=== PATIENT | male | born 1945 | race Caucasian/White ===

== ENCOUNTER → 2016-12-26 | Day surgery (SDC) | payer BC ==
[~2016-12-26] VITALS: Ht 188 cm; Wt 102.0 kg
[~2016-12-26] MED LIST: AMOX500T3 PO; ASPCH81X PO; ATOR-22 PO; AZEL0.15 NAE; AZEL30SP NAE; CLOT1PAK; DABI150C PO; GLUC1CAP10; IBUP-1450 PO; LIDOCAINE HCL 2% 2 ML VIAL (20MG/ML) ONE; LPR25 PO; METO25TA3 PO; MOME50SP5; OMEG10007 PO; PROPOFOL IV EMULSION 10 MG/ML 20 ML VIAL IV ONE; VNTHFA/IN INH
[2016-12-26 06:54] VITALS: Ht 188 cm; Wt 102.0 kg
--- NOTE | 2016-12-26 09:00 | Cardiology Progress Note ---
Cardiology Progress Note Date of Service Dec 26, 2016. Cardiology Progress Note Patient arrived for elective cardioversion. He was connected to the equipment monitor phototypesetting and was in Sinus rhythm. This was confirmed with a 12 lead EKG. Pt feeling well. I counselled him to continue his current metoprolol dose and current Pradaxa dose. Outpt cardiology follow up was arranged. 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 Whitney Pinzon DO
== END | disposition home or self-care (01) ==
LOC: C.CATH 06:35
PROVIDERS: ATTEND Physician Assistant
DX: I48.91 Unspecified atrial fibrillation (principal)

== ENCOUNTER → 2017-08-14 | Day surgery (SDC) | payer BC ==
[~2017-08-14] VITALS: Ht 188 cm; Wt 104.0 kg
[2017-08-14] VITALS (9 sets, daily range): BP systolic 118–149; BP diastolic 73–91; PULSE 51–86; TEMP 36.7; O2SAT 94–98; Ht 188 cm; Wt 104.0 kg
[~2017-08-14] MED LIST changes: -AZEL30SP NAE; +CHLOTAB10 PO; -CLOT1PAK; -LPR25 PO; +MISCTAB29 PO; -OMEG10007 PO
--- NOTE | 2017-08-14 07:40 | History & Physical Bridge Note ---
H&P Re-Evaluation Bridge Note: I have examined the patient, reviewed the History & Physical and in the interval since the performance of the History & Physical I have noted the following changes of clinical significance: No changes noted
--- NOTE | 2017-08-14 07:48 | CARDIOVERSION ---
DATE OF OPERATION: 08/14/2017 PROCEDURE: Cardioversion. HISTORY OF PRESENT ILLNESS: The patient is a 72-year-old male who has persistent atrial fibrillation. He has had multiple cardioversions in the past and recently developed a cold which resulted in reoccurrence of the atrial fibrillation. He has been on Pradaxa and beta helene. He is now presenting for a cardioversion. DESCRIPTION OF PROCEDURE: Sedation was given by anesthesia. After informed consent was obtained, the patient received 200 joules of biphasic energy converting him to a normal sinus rhythm. The procedure was not complicated. After the patient is fully wake and recovered, he will be discharged home to outpatient followup. I attest to the content of the Intraoperative Record and any orders documented therein. Any exception s are noted below.
--- NOTE | 2017-08-14 08:23 | Discharge Instructions ---
Discharge Instructions Date of Service Aug 14, 2017. Admission Reason for Admission: Atrial Fib/Dr Mcqueen Anesthesia Notified Discharge Discharge Diagnosis / Problem: paf Discharge Goals Goal(s): Improve function Activity Recommendations Activity Limitations: resume your previous activity . Instructions / Follow-Up Instructions / Follow-Up with Monique Gabriel Current Hospital Diet Patient's current hospital diet: Discharge Diet Recommended Diet: AHA Diet (Heart Healthy) Pending Studies Studies pending at discharge: no Medical Emergencies . Who to Call and When: Medical Emergencies: If at any time you feel your situation is an emergency, please call 911 immediately. . Non-Emergent Contact Non-Emergency issues call your: Setter Cold Rolling Machine . . "Provider Documentation" section prepared by Fausto Mcqueen. . VTE Core Measure Inpt VTE Proph given/why not?: Other Anticoagulation
--- NOTE | 2017-08-14 08:43 | Anesthesiology Progress Note ---
Anesthesia Post Op Note Date & Time Aug 14, 2017 at 08:43 Vital Signs Pain Intensity: 0 Vital Signs Past 12 Hours Date Time Temp Pulse Resp B/P (MAP) Pulse Ox O2 Delivery O2 Flow Rate FiO2 08/14/17 08:20 53 16 122/82 (95) 97 Room Air 08/14/17 08:05 55 16 116/74 (88) 97 Room Air 08/14/17 08:00 55 16 119/73 (88) 97 Room Air 08/14/17 07:55 54 16 118/76 (90) 97 Room Air 08/14/17 07:50 55 16 136/78 (97) 97 Room Air 08/14/17 07:45 54 16 129/82 (98) 97 Room Air 08/14/17 07:43 51 16 118/73 94 Room Air 08/14/17 07:41 51 16 118/73 94 Room Air 08/14/17 07:40 52 16 127/76 94 Room Air 08/14/17 07:36 52 16 127/76 94 Room Air 08/14/17 07:34 82 16 121/91 94 Room Air 08/14/17 07:32 81 16 137/85 98 Room Air 08/14/17 07:30 75 16 149/90 98 Room Air 08/14/17 06:53 36.7 86 16 132/89 97 Room Air Notes Mental Status: alert / awake / arousable, participated in evaluation Pt Amnestic to Procedure: Yes Nausea / Vomiting: adequately controlled Pain: adequately controlled Airway Patency, RR, SpO2: stable & adequate BP & HR: stable & adequate Hydration State: stable & adequate Anesthetic Complications: no major complications apparent
== END | disposition home or self-care (01) ==
LOC: C.CATH 06:32
PROVIDERS: ATTEND Internal Medicine Interventional Cardiology
DX: I48.0 Paroxysmal atrial fibrillation (principal); M17.10 Unilateral primary osteoarthritis, unspecified knee; I34.0 Nonrheumatic mitral (valve) insufficiency; E78.5 Hyperlipidemia, unspecified; I10 Essential (primary) hypertension; F17.290 Nicotine dependence, other tobacco product, uncomplicated; Z79.82 Long term (current) use of aspirin; Z79.899 Other long term (current) drug therapy; Z85.46 Personal history of malignant neoplasm of prostate

== ENCOUNTER 2022-04-09 07:57 | Inpatient (IN) ==
[2022-04-09] MEDS ORDERED: POLYETHYLENE (MIRALAX) 17 GM PACK PO PRN (08:22)
[2022-04-09] MEDS ORDERED: ONDANSETRON INJ 2 MG/ML 2 ML VIAL IV PRN (08:22)
[2022-04-09] MEDS ORDERED: ACETAMINOPHEN 325 MG TAB PO PRN (08:22)
[2022-04-09] MEDS ORDERED: ALUMINUM/MAGNESIUM SUSP 30 ML UDC PO PRN (08:22)
[2022-04-09] MEDS ORDERED: MAGNESIUM HYDROXIDE SUSP 30 ML UDC PO PRN (08:22)
--- NOTE | 2022-04-09 09:48 | History & Physical Report ---
Date of Service April 09, 2022 Assessment & Plan (1) PAF (paroxysmal atrial fibrillation): (2) HTN (hypertension): (3) HLD (hyperlipidemia): (4) Mitral valve regurgitation: (5) Pre-diabetes: Plan: Assessment and plan This is a 76-year-old male who has a significant past medical history of paroxysmal atrial fibrillation anticoagulated on Eliquis with history of cardioversion in past, HTN, HLD, prediabetes, alcohol dependence, history of prostate cancer, mitral valve regurg who presents as a direct admission at the referral of cardiology for initiation of amiodarone load and possible cardioversion. Rate controlled atrial fibrillation Mitral regurgitation Patient directly admitted to PCU Cardiology consulted -will defer to our cardiology colleagues regarding amiodarone dosing Per initial conversation with leadership coach likely plan is for amiodarone load and possible cardioversion on Friday CBC, CMP, troponin, mag, TSH ordered COVID ordered EKG reviewed -rate controlled atrial fibrillation Continue Eliquis, he did not miss any doses over the last 30 days Continue metoprolol for now -defer to cardiology for dose reduction Echo 02/2022 per epic: LVEF preserved at 56% and moderate concentric LVH- unchanged from 2016, severe left atrium enlargement, previously was moderate in 2016, Mild MR and TR, stable HTN Continue metoprolol HLD Continue statin Alcohol dependence Drinks daily for happy hour from 3 to 5 PM No history of withdrawal, monitor Recommend cessation Pre Diabetes on metformin, hold while inpt last a1c 5.7 03/26/21 a1c in a.m. await lab results, hold on starting sliding scale for now History of prostate cancer DVT prophylaxis: Eliquis Dispo: PCU, likely to remain admitted for amio loading and possible cardioversion on Friday Full code PCP: Bjorn Pt was seen and examined in collaboration with Dr. Ontiveros, please see addendum Admission and Anticipated Discharge Date Admission Date: April 09, 2022 History of Present Illness Chief Complaint: Direct admission secondary to symptomatic A. fib and amiodarone load initiation. Primary Care Provider: Antonio Milan MD This is a 76-year-old male who has a significant past medical history of paroxysmal atrial fibrillation anticoagulated on Eliquis with history of cardio version in past, HTN, HLD, prediabetes, alcohol dependence, history of prostate cancer, mitral valve regurg who presents as a direct admission at the referral of cardiology for initiation of amiodarone load and possible cardioversion. Currently he feels well. He does not feel any palpitations while in atrial fibrillation. He does get dyspnea on exertion. He denies any recent illness, fever, chills, sweats, lightheadedness, dizziness, syncope, chest pain, shortness of breath at rest, cough, hemoptysis, URI symptoms, nausea, vomiting, abdominal pain, change in bowel or urinary habits. He took all his morning medications including Eliquis and metoprolol. Patient's most recent echocardiogram done as outpatient revealed preserved EF at 56%, moderate concentric LVH which was unchanged from 2016. He does have severe left atrium enlargement which previously was moderate in 2016, mild MR and TR stable. Recently he had increased his metoprolol succinate to 50 mg twice daily; however, symptoms remain the same. He has not missed any doses of his Eliquis. He states approximately a month and a half ago he was off of it for 3 days for a colonoscopy. He is a very active individual and goes to the gym frequently throughout the week. He also enjoys hiking. He is an occasional cigar smoker. He does drink alcohol daily. He has a daily happy hour from 3 PM to 5 PM. He states he drinks 1 drink a day. Allergies Allergy/AdvReac Type Severity Reaction Status Date / Time No Known Allergies Allergy Verified 04/09/22 08:35 Home Medications Medication Instructions Recorded Confirmed Type amoxicillin 500 mg capsule 2,000 mg PO UD 04/09/22 04/09/22 History apixaban 5 mg tablet (Eliquis) 5 mg PO BID 04/09/22 04/09/22 History atorvastatin 20 mg tablet 20 mg PO DAILY 04/09/22 04/09/22 History cyanocobalamin (vitamin B-12) 100 100 mcg PO DAILY 04/09/22 04/09/22 History mcg tablet (Vitamin B-12) metformin 500 mg tablet,extended 500 mg PO BIDM 04/09/22 04/09/22 History release 24 hr metoprolol succinate 25 mg 50 mg PO BID 04/09/22 04/09/22 History tablet,extended release 24 hr thiamine HCl (vitamin B1) 100 mg 100 mg PO DAILY 04/09/22 04/09/22 History tablet Past Med/Surg History Medical History (Updated 04/09/22 @ 08:43 by Megan Aguillon PA-C) History of umbilical hernia HLD (hyperlipidemia) HTN (hypertension) Mitral valve regurgitation PAF (paroxysmal atrial fibrillation) Pre-diabetes Prostate cancer (03/27/11) Surgical History (Updated 04/09/22 @ 08:43 by Megan Aguillon PA-C) History of arthroscopic knee surgery History of cataract extraction with lens replacement b/l 06/2020 History of colonoscopy with polypectomy History of cystoscopy History of hernia repair History of lumbar surgery hx of b/l L4-5 hemilaminectomy, foraminotomy and right microdiscectomy History of total knee arthroplasty Right Family History (Updated 04/09/22 @ 10:32 by Megan Aguillon PA-C) Mother Alzheimer disease Father , 98 Old age Social History (Updated 04/09/22 @ 10:33 by Megan Aguillon PA-C) Smoking Status: Current some day smoker Tobacco Type: Cigars Second Hand Exposure: No; Do You Dip or Chew Tobacco: No; Tobacco Cessation Education Requested by Patient: No Hx Alcohol Use: Yes Alcohol type: hard liquor Alcohol Intake Frequency: 4 or More x per/Week Alcohol Intake Frequency Comment: daily happy hour from 3p-5p Hx Substance Use: No Preferred Language: Qatari Communication Ability: Effective Behavioral Health Specialist Required: No Beliefs That Will Affect Care: None marital status: Current Living Situation: Spouse current occupational status: retired 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 Other Information That Helps Us Care for You: No Feels Safe at Home: Yes Safety Concerns: Feels Safe At This Time Assistive Devices: None Review of Systems Review of Systems: All systems reviewed & are unremarkable except as noted in HPI & below Physical Exam Physical Exam: Constitutional: WD/WN, NAD, sitting up in bedside chair, pleasant, conversing easily Head: Normocephalic, Atraumatic Eyes: ,pupils equal, conjunctivae normal, anicteric sclerae ENMT: external ear and nose normal, oropharynx normal Neck: trachea midline, no thyromegaly normal visual inspection Respiratory: normal respiratory effort, lungs clear to auscultation, no wheeze, rales, rhonchi. Normal insp/exp effort, no accessory muscle use Cardiovascular: IRR/IRR, no murmur, no edema Vessels: no JVD or carotid bruit Chest: normal inspection of chest Abdomen: soft,NT, BS, Musculoskeletal: no cyanosis or clubbing, AROM x 4 Skin: no rashes, warm and dry normal turgor Neurologic: no face palsy, no dysarthria CN's II-XI intact bilaterally and moves all extremities Psychiatric: A+Ox3, euthymic affect : deferred Results & Data Results & Data ([facility]) Vital Signs (Past 12 Hours) awaiting vital signs Laboratory Results Labs ordered Medications Administered Current Inpatient Medications Acetaminophen (Acetaminophen 325 Mg Tab) 650 mg PO Q4H PRN PRN Reason: Pain or Fever Stop: 05/09/22 08:21 Al Hydrox/Mg Hydrox/Simethicone (Aluminum/Magnesium Susp 30 Ml Udc) 15 ml PO Q4H PRN PRN Reason: Dyspepsia Stop: 05/09/22 08:21 Apixaban (Apixaban 5 Mg Tablet) 5 mg PO BID [facility] Stop: 05/09/22 20:59 Atorvastatin Calcium (Atorvastatin 20 Mg Tab) 20 mg PO DAILY [facility] Stop: 05/10/22 08:59 Cyanocobalamin (Cyanocobalamin (B-12) 100 Mcg Tablet) 100 mcg PO DAILY [facility] Stop: 05/10/22 08:59 Magnesium Hydroxide (Magnesium Hydroxide Susp 30 Ml Udc) 30 ml PO Q12H PRN PRN Reason: Constipation Stop: 05/09/22 08:21 Metoprolol Succinate (Metoprolol Succ 50mg Ext Rel Tab) 50 mg PO BID [facility] Stop: 05/09/22 20:59 Ondansetron HCl (Ondansetron Inj 2 Mg/Ml 2 Ml Vial) 4 mg IV Q6H PRN PRN Reason: Nausea Stop: 05/09/22 08:21 Polyethylene Glycol (Polyethylene (Miralax) 17 Gm Pack) 17 gm PO DAILY PRN PRN Reason: Constipation Stop: 05/09/22 08:21 Thiamine HCl (Thiamine Hcl 100 Mg Tab) 100 mg PO DAILY FADY Stop: 05/10/22 08:59 ECG Rate (beats per minute): 80 Rhythm: atrial fibrillation Findings: + PVC Code Status & VTE Plan Code Status FULL CODE VTE Prophylaxis Plan VTE Prophylaxis will be ordered: Yes Supervising Physician Co-Signing Physician Notes Pt is a 76 y/o M with hx of Afib on eliquis, HLD, prediabetes, HTN, Prostate Ca s/p radical prostatectomy, mild mitral regurgitation and severe biatrial enlargement admitted for cardioversion due to symptomatic afib. Recent Echo 02/28/22: Normal chamber size with moderate concentric LVH. Normal LV systolic function without regional wall motion. Calculated LV ejection Fraction = 56% (bi-plane method of discs). Mild aortic valve sclerosis without stenosis. Mild mitral regurgitation. Mild tricuspid regurgitation. Severe biatrial enlargement. PE: NAD, well developed Cardiac: in afib, no murmur Lungs: CTA, no wheezing or crackles ABd: ND, NT, soft MSK: no LE edema Psych:AAOx3, normal affect A/P: Afib: -pt is symptomatic with exertion -currently HR wnl and asymptomatic at rest -cardiology on board: current plan is to start pt on amiodarone and cardioversion in 3 days ---- change metoprolol to 25mg BID -will continue home eliquis Other chronic conditions: plan as above Agree with A/P by Megan Aguillon PA-C
--- NOTE | 2022-04-09 10:07 | Cardiology Consultation ---
Date of Consultation April 09, 2022 Assessment & Plan (1) PAF (paroxysmal atrial fibrillation): Symptomatic atrial fibrillation. Planned direct admit for amiodarone load and DCCV. EKG showing atrial fib with rates in the 80s and occasional PVCs. QTC 419 ms. 1. Reduce metoprolol to 25 mg BID 2. Start amiodarone 400 mg three times daily with meals, possible DCCV on Friday. 3. Labs pending- follow renal function and electrolytes. Potassium goal of 4.0 and mag goal of 2.0 4. Okay to eat today. Will plan on NPO night in prep for DCCV on Friday. Case discussed with Dr. Palomo- will follow. Supervising Physician Co-Signing Physician Notes Patient seen examined the bedside. Reports dyspnea when climbing stairs. Symptoms present for several months. No orthopnea, PND, or lower extremity edema. Denies chest discomfort or heaviness. Denies lightheadedness, dizziness, syncope, or near syncope. PE: VSS. Gen: NAD, AAO x3. Heart: Irregular rhythm, normal S1S2. No murmur. Pulm: clear B/L, no rales, rhonchi, or wheeze. Ext: No edema. A/P: Agree with above AP history, physical exam, assessment and plan. Patient agreeable to amiodarone loading. Continue Eliquis uninterrupted. Plan for external direct-current cardioversion Friday a.m. History of Present Illness Reason for Consultation: Direct admit for amiodarone load and DCCV, Persistent atrial fib Requesting Physician: Verena River Attending Physician: Reji Ontiveros MD History of Present Illness 76 year old male direct admit for inpatient amiodarone load with possible DCCV. Follows with Dr. Mcqueen and the undersigned as an outpatient. As an outpatient, he was having concerns regarding symptomatic atrial fib. Noted dyspnea on exertion, specifically steps or hiking. When he exercises at the gym he feels well. Denies exertional chest pain. No palpitations, dizziness, or syncope. Echo done as an outpatient- LVEF preserved at 56% and moderate concentric LVH- unchanged from 2016 He has severe left atrium enlargement, previously was moderate in 2016 Mild MR and TR, stable. Attempted rate control with titration of metoprolol succinate 50 mg BID, symptoms remained. He is anticoagulated on Eliquis without any missed doses. Upon entrance into the room patient was resting comfortably in bed. Denied any current chest pain or shortness of breath- was at the gym prior to admission without concerning symptoms per the patient. No palpitations, dizziness, or syncope. No orthopnea, PND, or increased lower extremity edema. Past medical history: 1. Paroxysmal atrial fibrillation, [id number] score of 2 (age 2), on Eliquis a. S/p [facility] 2010, 2015, 2016 2. Severely enlarged left and right atrium per echocardiogram, 02/2022 3. Dyslipidemia 4. Diabetes type 2 Allergies Allergy/AdvReac Type Severity Reaction Status Date / Time No Known Allergies Allergy Verified 04/09/22 08:35 Home Medications Medication Instructions Recorded Confirmed Type amoxicillin 500 mg capsule 2,000 mg PO UD 04/09/22 04/09/22 History apixaban 5 mg tablet (Eliquis) 5 mg PO BID 04/09/22 04/09/22 History atorvastatin 20 mg tablet 20 mg PO DAILY 04/09/22 04/09/22 History cyanocobalamin (vitamin B-12) 100 100 mcg PO DAILY 04/09/22 04/09/22 History mcg tablet (Vitamin B-12) metformin 500 mg tablet,extended 500 mg PO BIDM 04/09/22 04/09/22 History release 24 hr metoprolol succinate 25 mg 50 mg PO BID 04/09/22 04/09/22 History tablet,extended release 24 hr thiamine HCl (vitamin B1) 100 mg 100 mg PO DAILY 04/09/22 04/09/22 History tablet Patient History Medical History HLD (hyperlipidemia) HTN (hypertension) Mitral valve regurgitation PAF (paroxysmal atrial fibrillation) Pre-diabetes Prostate cancer (03/27/11) Surgical History History of arthroscopic knee surgery History of cataract extraction with lens replacement b/l 06/2020 History of colonoscopy with polypectomy History of cystoscopy History of hernia repair History of lumbar surgery hx of b/l L4-5 hemilaminectomy, foraminotomy and right microdiscectomy History of total knee arthroplasty Right History of umbilical hernia Family History Mother Alzheimer disease Father , 98 Old age Social History Smoking Status: Current some day smoker Tobacco Type: Cigars Second Hand Exposure: No; Do You Dip or Chew Tobacco: No; Tobacco Cessation Education Requested by Patient: No Hx Alcohol Use: Yes Alcohol type: hard liquor Alcohol Intake Frequency: 4 or More x per/Week Alcohol Intake Frequency Comment: daily happy hour from 3p-5p Hx Substance Use: No Preferred Language: Kittitian Communication Ability: Effective Wire Coating Machine Operator Required: No Beliefs That Will Affect Care: None marital status: Current Living Situation: Spouse current occupational status: retired 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 Other Information That Helps Us Care for You: No Feels Safe at Home: Yes Safety Concerns: Feels Safe At This Time Assistive Devices: None Review of Systems Review of Systems: All systems reviewed & are unremarkable except as noted in HPI & below Physical Exam Constitutional: healthy appearing; no acute distress Eyes: PERRL, conjunctivae normal, anicteric sclerae Neck: normal visual inspection and trachea midline Respiratory: normal respiratory effort, lungs clear to auscultation Cardiovascular: Rate/Rhythm: regular rate and + irregularly irregular Heart Sounds: normal S1 and normal S2; no murmur Vessels: no JVD Extremities: no edema Gastrointestinal (Abdomen): normal bowel sounds, soft, nontender, no hepatosplenomegaly Musculoskeletal: no cyanosis or clubbing, extremities motor strength 5/5 Skin: no rashes, warm and dry Neurologic: Motor/Sensory: no tremor Psychiatric: A+Ox3, euthymic affect Results & Data ([facility]) Vital Signs (Past 12 Hours) Vital Signs Temp Pulse Resp BP Pulse Ox 37 C 82 16 128/77 99 04/09/22 09:59 04/09/22 09:59 04/09/22 09:59 04/09/22 09:59 04/09/22 09:59 Laboratory Results Cardiac Enzymes 04/09/22 Range/Units 10:17 AST 31 (13-39) U/L Troponin I High Sens 8.0 (0-20) pg/ml CBC 04/09/22 Range/Units 10:17 WBC 6.42 (4.8-10.8) K/uL RBC 4.38 L (4.7-6.1) M/uL Hgb 14.5 (14.0-18.0) g/dL Hct 43.1 (42-52) % Plt Count 153 (130-400) K/uL Neut # (Auto) 3.75 (1.4-6.5) K/uL Lymph # (Auto) 1.62 (1.2-3.4) K/uL [place] # (Auto) 0.81 H (0.11-0.59) K/uL Eos # (Auto) 0.16 (0-0.5) K/uL Baso # (Auto) 0.03 (0-0.2) K/uL Comprehensive Metabolic Panel 04/09/22 Range/Units 10:17 Sodium 141 (136-145) mmol/L Potassium 4.7 (3.5-5.1) mmol/L Chloride 106 (98-107) mmol/L Carbon Dioxide 27 (21-32) mmol/L BUN 23 (6-23) mg/dl Creatinine 1.04 (0.6-1.4) mg/dl Glucose 108 H (70-99(Fasting)) mg/dl Calcium 9.5 (8.5-10.1) mg/dl AST 31 (13-39) U/L ALT 50 (7-52) U/L Alkaline Phosphatase 55 (34-104) U/L Total Protein 7.0 (6.0-8.3) gm/dl Albumin 4.5 (3.4-5.0) gm/dl Intake and Output 04/08/22 04/09/22 04/09/22 22:59 06:59 14:59 Other: Weight 104.326 kg Weight Measurement Method Stated by Patient Patient Weight 04/10/22 06:59 Weight 104.326 kg Diagnostic Findings Echo 02/28/2022 outpatient The primary indication after review was deemed appropriate and the examination was performed. Normal chamber size with moderate concentric LVH. Normal LV systolic function without regional wall motion. Calculated LV ejection Fraction = 56% (bi-plane method of discs). Mild aortic valve sclerosis without stenosis. Mild mitral regurgitation. Mild tricuspid regurgitation. Severe biatrial enlargement.
[2022-04-09 10:47] LABS: Basophils # (auto) 0.03 K/uL (0-0.2); Basophils % (auto) 0.5 %; Eosinophils # (auto) 0.16 K/uL (0-0.5); Eosinophils % (auto) 2.5 %; Hematocrit (blood only) 43.1 % (42-52); Hemoglobin 14.5 g/dL (14.0-18.0); Immature Granulocytes # (auto) 0.05 K/uL (0.00-0.02); Immature Granulocytes % (auto) 0.8 %; Lymphocytes # (auto) 1.62 K/uL (1.2-3.4); Lymphocytes % (auto) 25.2 %; Mean Corpuscular Hemoglobin 33.1 pg (25-34); Mean Corpuscular Volume 98.4 fL (80-100); Mean Platelet Volume 11.3 fL (7.4-10.4); Monocytes # (auto) 0.81 K/uL (0.11-0.59); Monocytes % (auto) 12.6 %; Neutrophils # (auto) 3.75 K/uL (1.4-6.5); Neutrophils % (auto) 58.4 %; Platelet Count 153 K/uL (130-400); RDW Coefficient of Variation 14.3 % (11.5-14.5); RDW Standard Deviation 50.4 fL (36.4-46.3); Red Blood Count 4.38 M/uL (4.7-6.1); White Blood Count 6.42 K/uL (4.8-10.8)
[2022-04-09 10:56] LABS: Mean Corpuscular Hgb Conc 33.6 g/dL (32-36)
[2022-04-09] MEDS: Patient's HEIGHT &/or WEIGHT Needed SCH ×2 (11:02→11:03)
[2022-04-09 11:08] LABS: Albumin Globulin Ratio 1.8 (0.9-2); Albumin Level 4.5 gm/dl (3.4-5.0); BUN Creatinine Ratio 22.1 (10-20); Bilirubin,Total 1.5 mg/dl (0.2-1.0); Calcium 9.5 mg/dl (8.5-10.1); Creatinine Clr Calc Pharmacy 77.8 ml/min; Est GFR (African American) 80.5 ml/min; Est GFR (Non-African American) 69.4 ml/min; Globulin 2.5 gm/dl (2.5-4.0); Magnesium 1.9 mg/dl (1.7-2.4); Potassium 4.7 mmol/L (3.5-5.1)
[2022-04-09] MEDS ORDERED: MAGNESIUM SULFATE / D5W 1 GM/100 ML BAG IV ONE (11:26)
[2022-04-09] MEDS: AMIODARONE 200 MG TAB PO SCH ×2 (12:32→17:20)
[2022-04-09] MEDS: METOPROLOL SUCC 25MG EXT REL TAB PO SCH (19:58)
[2022-04-09] MEDS: APIXABAN 5 MG TABLET PO SCH (19:58)
[2022-04-09] MEDS ORDERED: METOPROLOL SUCC 50MG EXT REL TAB PO SCH (21:00)
--- NOTE | 2022-04-10 07:42 | Cardiology Progress Note ---
Date of Service April 10, 2022 Assessment & Plan (1) PAF (paroxysmal atrial fibrillation): Plan: Symptomatic atrial fibrillation. Planned direct admit for amiodarone load and external DCCV. EKG showing atrial fib with rates in the 60s. QTC 450 ms. 1. Reduce metoprolol to 25 mg daily 2. Continue amiodarone 400 mg three times daily with meals, possible DCCV on Friday. 3. Follow renal function and electrolytes. Potassium goal of 4.0 and mag goal of 2.0 4. Okay to eat today. Will plan on NPO night in prep for DCCV on Friday. Plan: Case discussed with Dr. Palomo- will follow. Admission and Anticipated Discharge Date Admission Date: April 09, 2022 Supervising Physician Co-Signing Physician Notes Patient seen examined the bedside. Feeling well today. Denies chest pain, palpitations, shortness of breath, lightheadedness, or dizziness. Telemetry reveals atrial fibrillation with heart rate ranging in the 60s. No significant pauses or bradycardia recorded. PE: VSS. Gen: NAD, AAO x3. Heart: Irregular rhythm, normal S1S2. No murmur. Pulm: clear B/L, no rales, rhonchi, or wheeze. Ext: No edema. A/P: Agree with above AP history, physical exam, assessment and plan. Continue oral amiodarone loading. Monitor heart rate via telemetry. Consider reducing dose of amiodarone down to 400 mg twice daily and or holding Toprol-XL with any significant bradycardia. Continue Eliquis 5 mg twice daily. Plan external direct-current cardioversion in a.m. 04/12/2022. Subjective 76-year-old male direct admit for inpatient amiodarone loading with possible external DCCV Friday. Started on amiodarone 400 mg 3 times daily yesterday, 04/09. Metoprolol succinate was then reduced to 25 mg twice daily. Chart reviewed. Patient examined at bedside. Feeling well without complaint. No chest pain, sob, or palpitations. No dizziness or syncope. EKG today shows atrial fibrillation, 66 bpm. QTc 450 ms Tele: Afib 60-70s no pauses or bradyarrythmias. Review of Systems Review of Systems: All systems reviewed & are unremarkable except as noted in HPI & below Physical Exam Constitutional: healthy appearing; no acute distress Eyes: PERRL, conjunctivae normal, anicteric sclerae Neck: normal visual inspection and trachea midline Respiratory: normal respiratory effort, lungs clear to auscultation Cardiovascular: Rate/Rhythm: regular rate and + irregularly irregular Heart Sounds: normal S1 and normal S2; no murmur Vessels: no JVD Extremities: no edema Gastrointestinal (Abdomen): normal bowel sounds, soft, nontender, no hepatosplenomegaly Musculoskeletal: no cyanosis or clubbing, extremities motor strength 5/5 Skin: no rashes, warm and dry Neurologic: Motor/Sensory: no tremor Psychiatric: A+Ox3, euthymic affect Results & Data ([facility]) Vital Signs (Past 12 Hours) Vital Signs Temp Pulse Pulse Resp BP BP Pulse Ox 04/10/22 07:20 36.6 C 64 18 145/87 H 96 04/10/22 03:46 36.4 C L 67 18 112/78 95 04/09/22 22:45 36.6 C 68 22 115/76 95 04/09/22 20:00 36.6 C 63 18 130/82 96 Laboratory Results Cardiac Enzymes 04/09/22 04/10/22 Range/Units 10:17 07:27 AST 31 24 (13-39) U/L Troponin I High Sens 8.0 (0-20) pg/ml CBC 04/09/22 04/10/22 Range/Units 10:17 07:27 WBC 6.42 4.66 L (4.8-10.8) K/uL RBC 4.38 L 4.36 L (4.7-6.1) M/uL Hgb 14.5 14.3 (14.0-18.0) g/dL Hct 43.1 42.4 (42-52) % Plt Count 153 145 (130-400) K/uL Neut # (Auto) 3.75 2.54 (1.4-6.5) K/uL Lymph # (Auto) 1.62 1.33 (1.2-3.4) K/uL [place] # (Auto) 0.81 H 0.53 (0.11-0.59) K/uL Eos # (Auto) 0.16 0.22 (0-0.5) K/uL Baso # (Auto) 0.03 0.02 (0-0.2) K/uL Comprehensive Metabolic Panel 04/09/22 04/10/22 Range/Units 10:17 07:27 Sodium 141 138 (136-145) mmol/L Potassium 4.7 4.2 (3.5-5.1) mmol/L Chloride 106 106 (98-107) mmol/L Carbon Dioxide 27 26 (21-32) mmol/L BUN 23 19 (6-23) mg/dl Creatinine 1.04 0.89 (0.6-1.4) mg/dl Glucose 108 H 115 H (70-99(Fasting)) mg/dl Calcium 9.5 9.0 (8.5-10.1) mg/dl Direct Bilirubin 0.3 H (0-0.2) mg/dl AST 31 24 (13-39) U/L ALT 50 42 (7-52) U/L Alkaline Phosphatase 55 50 (34-104) U/L Total Protein 7.0 6.8 (6.0-8.3) gm/dl Albumin 4.5 4.3 (3.4-5.0) gm/dl Intake and Output 04/09/22 04/10/22 04/10/22 22:59 06:59 14:59 Intake Total 575 / 925 250 / 925 Output Total Balance 574 / 923 249 / 923 Intake: Oral 575 / 825 250 / 825 Output: # Bowel Movements Other: # Unmeasured Voids 1 Weight 104.8 kg Weight Measurement Method Built in [facility]
[2022-04-10 07:47] LABS: Basophils # (auto) 0.02 K/uL (0-0.2); Basophils % (auto) 0.4 %; Eosinophils # (auto) 0.22 K/uL (0-0.5); Eosinophils % (auto) 4.7 %; Hematocrit (blood only) 42.4 % (42-52); Hemoglobin 14.3 g/dL (14.0-18.0); Immature Granulocytes # (auto) 0.02 K/uL (0.00-0.02); Immature Granulocytes % (auto) 0.4 %; Lymphocytes # (auto) 1.33 K/uL (1.2-3.4); Lymphocytes % (auto) 28.5 %; Mean Corpuscular Hemoglobin 32.8 pg (25-34); Mean Corpuscular Hgb Conc 33.7 g/dL (32-36); Mean Corpuscular Volume 97.2 fL (80-100); Mean Platelet Volume 11.3 fL (7.4-10.4); Monocytes # (auto) 0.53 K/uL (0.11-0.59); Monocytes % (auto) 11.4 %; Neutrophils # (auto) 2.54 K/uL (1.4-6.5); Neutrophils % (auto) 54.6 %; Platelet Count 145 K/uL (130-400); RDW Coefficient of Variation 14.1 % (11.5-14.5); RDW Standard Deviation 50.9 fL (36.4-46.3); Red Blood Count 4.36 M/uL (4.7-6.1); White Blood Count 4.66 K/uL (4.8-10.8)
[2022-04-10] MEDS: AMIODARONE 200 MG TAB PO SCH ×3 (07:55→16:51)
[2022-04-10] MEDS: CYANOCOBALAMIN (B-12) 100 MCG TABLET PO SCH (08:00)
[2022-04-10] MEDS: THIAMINE HCL 100 MG TAB PO SCH (08:00)
[2022-04-10] MEDS: ATORVASTATIN 20 MG TAB PO SCH (08:00)
[2022-04-10] MEDS: APIXABAN 5 MG TABLET PO SCH ×2 (08:00→20:08)
[2022-04-10] MEDS: METOPROLOL SUCC 25MG EXT REL TAB PO SCH (08:00)
[2022-04-10 08:04] LABS: Albumin Globulin Ratio 1.7 (0.9-2); Albumin Level 4.3 gm/dl (3.4-5.0); BUN Creatinine Ratio 21.3 (10-20); Bilirubin Direct 0.3 mg/dl (0-0.2); Bilirubin,Total 1.8 mg/dl (0.2-1.0); Creatinine Clr Calc Pharmacy 91.1 ml/min; Est GFR (African American) 96.3 ml/min; Est GFR (Non-African American) 83.1 ml/min; Globulin 2.5 gm/dl (2.5-4.0); Potassium 4.2 mmol/L (3.5-5.1); Total Protein 6.8 gm/dl (6.0-8.3)
[2022-04-10 08:09] LABS: Estimated Average Glucose 114 mg/dl; Hemoglobin A1C 5.6 % (4.5-5.6)
--- NOTE | 2022-04-10 13:04 | Hospitalist Progress Note ---
Date of Service April 10, 2022 Assessment & Plan (1) PAF (paroxysmal atrial fibrillation): (2) HTN (hypertension): (3) HLD (hyperlipidemia): (4) Mitral valve regurgitation: (5) Pre-diabetes: Plan: This is a 76-year-old male who has a significant past medical history of paroxysmal atrial fibrillation anticoagulated on Eliquis with history of cardioversion in past, HTN, HLD, prediabetes, alcohol dependence, history of prostate cancer, mitral valve regurg who presents as a direct admission at the referral of cardiology for initiation of amiodarone load and possible cardioversion. PAF- rate controlled. Cardiology managing- on amio tid, metoprolol reduced to d aily. on eliquis. Plan for DCCV friday if does not convert spontaneously. Monitor on tele - Echo 02/2022 per epic: LVEF preserved at 56% and moderate concentric LVH- unchanged from 2016, severe left atrium enlargement, previously was moderate in 2016, Mild MR and TR, stable HTN- stable, Continue toprol HLD- Continue statin Alcohol dependence- Drinks daily for happy hour from 3 to 5 PM; No history of withdrawal, monitor; Recommend cessation Pre Diabetes- on metformin as OP currently on hold; A1c 5.6. BG controlled without need for insulin. History of prostate cancer DVT prophylaxis: Eliquis Dispo: On amio; plan for DCCV on Friday per cardio Admission and Anticipated Discharge Date Admission Date: April 09, 2022 Subjective Feels fine. Denies any chest pain, palpitations, light headedness, dyspnea, dizziness. No fever or chills. Physical Exam Physical Exam: General: Sitting comfortably in bed, not in distress, on room air HEENT: EOMI, THAIS, MMM Chest: Clear breath sounds bilaterally, no wheezes or crackles CVS: Irregularly irregular, normal heart sounds, no murmur Abdomen: Soft, non tender, not distended, normal bowel sounds Neuro: Awake, alert, oriented, conversing well, non focal Extremities: No cyanosis, clubbing or edema Results & Data Results & Data ([facility]) Vital Signs (Past 12 Hours) Vital Signs Temp Pulse Pulse Pulse Resp BP Pulse Ox 04/10/22 12:00 04/10/22 11:56 36.6 C 97 04/10/22 11:50 66 119/86 04/10/22 07:20 36.6 C 64 18 145/87 H 96 04/10/22 07:10 63 04/10/22 03:46 36.4 C L 67 18 112/78 95 Pulse Ox 04/10/22 12:00 97 04/10/22 11:56 04/10/22 11:50 04/10/22 07:20 04/10/22 07:10 04/10/22 03:46 Laboratory Results Short CBC 04/10/22 Range/Units 07:27 WBC 4.66 L (4.8-10.8) K/uL Hgb 14.3 (14.0-18.0) g/dL Hct 42.4 (42-52) % Plt Count 145 (130-400) K/uL BMP 04/10/22 07:27 Sodium 138 Potassium 4.2 Chloride 106 Carbon Dioxide 26 BUN 19 Creatinine 0.89 Glucose 115 H Calcium 9.0 Liver Function 04/10/22 Range/Units 07:27 Total Bilirubin 1.8 H (0.2-1.0) mg/dl Direct Bilirubin 0.3 H (0-0.2) mg/dl AST 24 (13-39) U/L ALT 42 (7-52) U/L Alkaline Phosphatase 50 (34-104) U/L Albumin 4.3 (3.4-5.0) gm/dl Medications Administered Current Inpatient Medications Acetaminophen (Acetaminophen 325 Mg Tab) 650 mg PO Q4H PRN PRN Reason: Pain or Fever Stop: 05/09/22 08:21 Al Hydrox/Mg Hydrox/Simethicone (Aluminum/Magnesium Susp 30 Ml Udc) 15 ml PO Q4H PRN PRN Reason: Dyspepsia Stop: 05/09/22 08:21 Amiodarone HCl (Amiodarone 200 Mg Tab) 400 mg PO TIDM FADY Stop: 05/09/22 11:59 Last Admin: 04/10/22 11:47 Dose: 400 mg Documented by: Apixaban (Apixaban 5 Mg Tablet) 5 mg PO BID FADY Stop: 05/09/22 20:59 Last Admin: 04/10/22 08:00 Dose: 5 mg Documented by: Atorvastatin Calcium (Atorvastatin 20 Mg Tab) 20 mg PO DAILY FADY Stop: 05/10/22 08:59 Last Admin: 04/10/22 08:00 Dose: 20 mg Documented by: Cyanocobalamin (Cyanocobalamin (B-12) 100 Mcg Tablet) 100 mcg PO DAILY [facility] Stop: 05/10/22 08:59 Last Admin: 04/10/22 08:00 Dose: 100 mcg Documented by: Magnesium Hydroxide (Magnesium Hydroxide Susp 30 Ml Udc) 30 ml PO Q12H PRN PRN Reason: Constipation Stop: 05/09/22 08:21 Metoprolol Succinate (Metoprolol Succ 25mg Ext Rel Tab) 25 mg PO DAILY [facility] Stop: 05/11/22 08:59 Ondansetron HCl (Ondansetron Inj 2 Mg/Ml 2 Ml Vial) 4 mg IV Q6H PRN PRN Reason: Nausea Stop: 05/09/22 08:21 Polyethylene Glycol (Polyethylene (Miralax) 17 Gm Pack) 17 gm PO DAILY PRN PRN Reason: Constipation Stop: 05/09/22 08:21 Thiamine HCl (Thiamine Hcl 100 Mg Tab) 100 mg PO DAILY [facility] Stop: 05/10/22 08:59 Last Admin: 04/10/22 08:00 Dose: 100 mg Documented by:
--- NOTE | 2022-04-10 21:07 | Electrocardiogram Report ---
Test Reason : Blood Pressure : / mmHG Vent. Rate : 080 BPM Atrial Rate : 096 BPM P-R Int : 000 ms QRS Dur : 088 ms QT Int : 364 ms P-R-T Axes : 000 018 -14 degrees QTc Int : 419 ms Atrial fibrillation with premature ventricular or aberrantly conducted complexes Septal infarct , age undetermined Abnormal ECG When compared with ECG of 14-AUG-2017 07:47, Atrial fibrillation has replaced Sinus rhythm Septal infarct is now Present Confirmed by Cj Montoya ([id number]) on 04/10/2022 9:06:47 PM Referred By: Demetrius Caceres Confirmed By:Cj Montoya
--- NOTE | 2022-04-11 06:20 | Electrocardiogram Report ---
Test Reason : Blood Pressure : / mmHG Vent. Rate : 066 BPM Atrial Rate : 129 BPM P-R Int : 000 ms QRS Dur : 090 ms QT Int : 430 ms P-R-T Axes : 000 011 -22 degrees QTc Int : 450 ms Atrial fibrillation Abnormal ECG When compared with ECG of 09-APR-2022 10:21, Criteria for Septal infarct are no longer Present Premature ventricular complexes are no longer Present Confirmed by Cj Montoya ([id number]) on 04/11/2022 6:19:38 AM Referred By: Demetrius Caceres Confirmed By:Cj Montoya
[2022-04-11] MEDS: CYANOCOBALAMIN (B-12) 100 MCG TABLET PO SCH (08:02)
[2022-04-11] MEDS: APIXABAN 5 MG TABLET PO SCH ×2 (08:02→20:19)
[2022-04-11] MEDS: THIAMINE HCL 100 MG TAB PO SCH (08:03)
[2022-04-11] MEDS: ATORVASTATIN 20 MG TAB PO SCH (08:03)
[2022-04-11] MEDS: AMIODARONE 200 MG TAB PO SCH (08:03)
--- NOTE | 2022-04-11 08:46 | Cardiology Progress Note ---
Date of Service April 11, 2022 Assessment & Plan (1) PAF (paroxysmal atrial fibrillation): Plan: Symptomatic atrial fibrillation. Planned direct admit for amiodarone load and external DCCV. EKG showing atrial fib with rates in the 60s. QTC 450 ms. 1. Continue metoprolol to 25 mg daily 2. Reduce amiodarone to 400 mg twice daily with meals, DCCV scheduled for tomorrow am, (04/12) with anesthesia and Dr. Mcqueen 3. Follow renal function and electrolytes. Potassium goal of 4.0 and mag goal of 2.0 4. Okay to eat today. Will plan on NPO tonight in prep for DCCV on Friday Plan: Case discussed with Dr. Palomo- will follow. Admission and Anticipated Discharge Date Admission Date: April 09, 2022 Supervising Physician Co-Signing Physician Notes Patient seen examined the bedside. Feeling well today. Denies chest pain, palpitations, shortness of breath, lightheadedness, or dizziness. Telemetry reveals atrial fibrillation with heart rate ranging in the 60s. No significant pauses or bradycardia recorded. PE: VSS. Gen: NAD, AAO x3. Heart: Irregular rhythm, normal S1S2. No murmur. Pulm: clear B/L, no rales, rhonchi, or wheeze. Ext: No edema. A/P: Agree with above AP history, physical exam, assessment and plan. Continue oral amiodarone loading. Monitor heart rate via telemetry. Reduce amiodarone to 400 mg twice daily. Continue Eliquis 5 mg twice daily. N.p.o. except medications after midnight external direct-current cardioversion in a.m. 04/12/2022. Subjective 76-year-old male direct admit for inpatient amiodarone loading with possible external DCCV Friday. Started on amiodarone 400 mg 3 times daily, 04/09. Metoprolol succinate was then reduced to 25 mg daily. Chart reviewed. Patient examined at bedside. Feeling well without complaint. No chest pain, sob, or palpitations. No dizziness or syncope. EKG today shows atrial fibrillation, 61 bpm. QTc 442 ms Tele: Afib 50-60s no significant pauses or bradyarrhythmias. Review of Systems Review of Systems: All systems reviewed & are unremarkable except as noted in HPI & below Physical Exam Constitutional: healthy appearing; no acute distress Eyes: PERRL, conjunctivae normal, anicteric sclerae Neck: normal visual inspection and trachea midline Respiratory: normal respiratory effort, lungs clear to auscultation Cardiovascular: Rate/Rhythm: regular rate and + irregularly irregular Heart Sounds: normal S1 and normal S2; no murmur Vessels: no JVD Extremities: no edema Gastrointestinal (Abdomen): normal bowel sounds, soft, nontender, no hepatosplenomegaly Musculoskeletal: no cyanosis or clubbing, extremities motor strength 5/5 Skin: no rashes, warm and dry Neurologic: Motor/Sensory: no tremor Psychiatric: A+Ox3, euthymic affect Results & Data ([facility]) Vital Signs (Past 12 Hours) Vital Signs Temp Pulse Pulse Pulse Resp BP Pulse Ox 04/11/22 07:51 37.3 C 72 18 117/77 95 04/11/22 07:00 54 L 04/11/22 03:12 36.7 C 65 18 117/74 98 04/10/22 23:49 36.5 C 62 18 108/69 99
[2022-04-11] MEDS ORDERED: METOPROLOL SUCC 25MG EXT REL TAB PO SCH (09:00)
[2022-04-11 09:51] LABS: Est GFR (African American) 82.4 ml/min; Est GFR (Non-African American) 71.1 ml/min; Potassium 4.1 mmol/L (3.5-5.1)
[2022-04-11 09:52] LABS: BUN Creatinine Ratio 17.6 (10-20); Calcium 8.9 mg/dl (8.5-10.1); Creatinine Clr Calc Pharmacy 80.1 ml/min
--- NOTE | 2022-04-11 12:24 | Anesthesiology Consultation ---
Date of Service April 11, 2022 Assessment & Plan (1) Encounter for pre-operative examination: Chart Review Chart Review: entry level account representative initiated History Surgery Operation Date: 04/12/22 07:15 Proposed Procedures p Cardioversion - Fausto Mcqueen DO Height/Weight Height: 6 ft 2 in Weight: 106.5 kg Allergies Allergy/AdvReac Type Severity Reaction Status Date / Time No Known Allergies Allergy Verified 04/09/22 08:35 Medications Home Medications Medication Instructions Recorded Confirmed Last Taken amoxicillin 500 mg capsule 2,000 mg PO UD 04/09/22 04/09/22 Unknown apixaban 5 mg tablet (Eliquis) 5 mg PO BID 04/09/22 04/09/22 Unknown atorvastatin 20 mg tablet 20 mg PO DAILY 04/09/22 04/09/22 Unknown cyanocobalamin (vitamin B-12) 100 100 mcg PO DAILY 04/09/22 04/09/22 Unknown mcg tablet (Vitamin B-12) metformin 500 mg tablet,extended 500 mg PO BIDM 04/09/22 04/09/22 Unknown release 24 hr metoprolol succinate 25 mg 50 mg PO BID 04/09/22 04/09/22 Unknown tablet,extended release 24 hr thiamine HCl (vitamin B1) 100 mg 100 mg PO DAILY 04/09/22 04/09/22 Unknown tablet Active Medications Generic Name Dose Route Start Last Admin Trade Name Denice PRN Reason Stop Dose Admin Apixaban 5 mg 04/09/22 21:00 04/11/22 08:02 Apixaban 5 Mg Tablet PO 05/09/22 20:59 5 mg BID FADY Administration Atorvastatin Calcium 20 mg 04/10/22 09:00 04/11/22 08:03 Atorvastatin 20 Mg Tab PO 05/10/22 08:59 20 mg DAILY FADY Administration Cyanocobalamin 100 mcg 04/10/22 09:00 04/11/22 08:02 Cyanocobalamin (B-12) 100 Mcg Tablet PO 05/10/22 08:59 100 mcg DAILY FADY Administration Metoprolol Succinate 25 mg 04/11/22 09:00 04/11/22 08:02 Metoprolol Succ 25mg Ext Rel Tab PO 05/11/22 08:59 25 mg DAILY FADY Administration Thiamine HCl 100 mg 04/10/22 09:00 04/11/22 08:03 Thiamine Hcl 100 Mg Tab PO 05/10/22 08:59 100 mg DAILY FADY Administration Past Medical History Medical History HLD (hyperlipidemia) HTN (hypertension) Mitral valve regurgitation PAF (paroxysmal atrial fibrillation) Pre-diabetes Prostate cancer (03/27/11) Past Family History Family History Mother Alzheimer disease Father , 98 Old age Past Surgical History Surgical History History of arthroscopic knee surgery History of cataract extraction with lens replacement b/l 06/2020 History of colonoscopy with polypectomy History of cystoscopy History of hernia repair History of lumbar surgery hx of b/l L4-5 hemilaminectomy, foraminotomy and right microdiscectomy History of total knee arthroplasty Right History of umbilical hernia Social History Smoking Status: Current some day smoker Do You Dip or Chew Tobacco: No Hx Alcohol Use: Yes Alcohol type: hard liquor Hx Substance Use: No substance use type: does not use Physical Exam Vital Signs Last Vital Signs Temp 98.6 F 04/11/22 11:34 Pulse 70 04/11/22 11:34 Resp 18 04/11/22 11:34 BP 138/90 04/11/22 11:34 Pulse Ox 98 04/11/22 11:34 Testing Laboratory Results 04/10/22 07:27 04/11/22 08:57 Hemoglobin A1c 5.6 % (4.5-5.6) 04/10/22 07:27 Electrocardiogram Date: 04/11/22 Atrial fibrillation, rate 61 bpm Abnormal ECG When compared with ECG of 10-APR-2022 04:36, No significant change was found
--- NOTE | 2022-04-11 14:19 | Hospitalist Progress Note ---
Date of Service April 11, 2022 Assessment & Plan (1) PAF (paroxysmal atrial fibrillation): (2) HTN (hypertension): (3) HLD (hyperlipidemia): (4) Mitral valve regurgitation: (5) Pre-diabetes: Plan: This is a 76-year-old male who has a significant past medical history of paroxysmal atrial fibrillation anticoagulated on Eliquis with history of cardioversion in past, HTN, HLD, prediabetes, alcohol dependence, history of prostate cancer, mitral valve regurg who presents as a direct admission at the referral of cardiology for initiation of amiodarone load and possible cardioversion. PAF- rate controlled. Cardiology managing- on amio bid, metoprolol reduced to d aily. on eliquis. Plan for DCCV friday if does not convert spontaneously. Monitor on tele - Echo 02/2022 per epic: LVEF preserved at 56% and moderate concentric LVH- unchanged from 2016, severe left atrium enlargement, previously was moderate in 2016, Mild MR and TR, stable HTN- stable, Continue toprol HLD- Continue statin Alcohol dependence- Drinks daily for happy hour from 3 to 5 PM; No history of withdrawal, monitor; Recommend cessation Pre Diabetes- on metformin as OP currently on hold; A1c 5.6. BG controlled without need for insulin. History of prostate cancer DVT prophylaxis: Eliquis Dispo: On amio; plan for DCCV on Friday per cardio Admission and Anticipated Discharge Date Admission Date: April 09, 2022 Subjective No new issues. Feels fine. No chest pain, shortness of breath, lightheadedness, dizziness, nausea, vomiting. Physical Exam Physical Exam: General: Sitting comfortably in bed, not in distress, on room air HEENT: EOMI, THAIS, MMM Chest: Clear breath sounds bilaterally, no wheezes or crackles CVS: Irregularly irregular, normal heart sounds, no murmur Abdomen: Soft, non tender, not distended, normal bowel sounds Neuro: Awake, alert, oriented, conversing well, non focal Extremities: No cyanosis, clubbing or edema Results & Data Results & Data ([facility]) Vital Signs (Past 12 Hours) Vital Signs Temp Pulse Pulse Pulse Resp BP Pulse Ox 04/11/22 11:34 37.0 C 70 18 138/90 98 04/11/22 07:51 37.3 C 72 18 117/77 95 04/11/22 07:00 54 L 04/11/22 03:12 36.7 C 65 18 117/74 98 Laboratory Results BMP 04/11/22 08:57 Sodium 138 Potassium 4.1 Chloride 105 Carbon Dioxide 27 BUN 18 Creatinine 1.02 Glucose 144 H Calcium 8.9 Medications Administered Current Inpatient Medications Acetaminophen (Acetaminophen 325 Mg Tab) 650 mg PO Q4H PRN PRN Reason: Pain or Fever Stop: 05/09/22 08:21 Al Hydrox/Mg Hydrox/Simethicone (Aluminum/Magnesium Susp 30 Ml Udc) 15 ml PO Q4H PRN PRN Reason: Dyspepsia Stop: 05/09/22 08:21 Amiodarone HCl (Amiodarone 200 Mg Tab) 400 mg [facility] Stop: 05/11/22 16:59 Apixaban (Apixaban 5 Mg Tablet) 5 mg PO BID FADY Stop: 05/09/22 20:59 Last Admin: 04/11/22 08:02 Dose: 5 mg Documented by: Atorvastatin Calcium (Atorvastatin 20 Mg Tab) 20 mg PO DAILY FADY Stop: 05/10/22 08:59 Last Admin: 04/11/22 08:03 Dose: 20 mg Documented by: Cyanocobalamin (Cyanocobalamin (B-12) 100 Mcg Tablet) 100 mcg PO DAILY [facility]ADY Stop: 05/10/22 08:59 Last Admin: 04/11/22 08:02 Dose: 100 mcg Documented by: Magnesium Hydroxide (Magnesium Hydroxide Susp 30 Ml Udc) 30 ml PO Q12H PRN PRN Reason: Constipation Stop: 05/09/22 08:21 Metoprolol Succinate (Metoprolol Succ 25mg Ext Rel Tab) 25 mg PO DAILY FADY Stop: 05/11/22 08:59 Last Admin: 04/11/22 08:02 Dose: 25 mg Documented by: Ondansetron HCl (Ondansetron Inj 2 Mg/Ml 2 Ml Vial) 4 mg IV Q6H PRN PRN Reason: Nausea Stop: 05/09/22 08:21 Polyethylene Glycol (Polyethylene (Miralax) 17 Gm Pack) 17 gm PO DAILY PRN PRN Reason: Constipation Stop: 05/09/22 08:21 Thiamine HCl (Thiamine Hcl 100 Mg Tab) 100 mg PO DAILY FADY Stop: 05/10/22 08:59 Last Admin: 06/09/22 08:03 Dose: 100 mg Documented by:
[2022-04-11] MEDS ORDERED: AMIODARONE 200 MG TAB PO SCH (17:00)
--- NOTE | 2022-04-12 06:05 | Electrocardiogram Report ---
Test Reason : Blood Pressure : / mmHG Vent. Rate : 061 BPM Atrial Rate : 300 BPM P-R Int : 000 ms QRS Dur : 088 ms QT Int : 440 ms P-R-T Axes : 000 013 -16 degrees QTc Int : 442 ms Atrial fibrillation Abnormal ECG When compared with ECG of 10-APR-2022 04:36, No significant change was found Confirmed by Cj Montoya ([id number]) on 04/12/2022 6:05:22 AM Referred By: Demetrius Caceres Confirmed By:Cj Montoya
[2022-04-12] MEDS ORDERED: PROPOFOL IV EMULSION 10 MG/ML 20 ML VIAL IV ONE (06:49)
[2022-04-12] MEDS ORDERED: LIDOCAINE 2% 2 ML VIAL/AMP(20MG/ML) INFIL ONE (06:49)
[2022-04-12 07:16] LABS: BUN Creatinine Ratio 17.5 (10-20); Calcium 9.1 mg/dl (8.5-10.1); Creatinine Clr Calc Pharmacy 79.3 ml/min; Est GFR (African American) 81.4 ml/min; Est GFR (Non-African American) 70.2 ml/min; Potassium 3.9 mmol/L (3.5-5.1)
[2022-04-12] MEDS ORDERED: AMIODARONE 200 MG TAB PO SCH (09:00)
[2022-04-12] MEDS ORDERED: METOPROLOL SUCC 25MG EXT REL TAB PO SCH (09:00)
[2022-04-12] MEDS: THIAMINE HCL 100 MG TAB PO SCH (09:42)
[2022-04-12] MEDS: ATORVASTATIN 20 MG TAB PO SCH (09:42)
[2022-04-12] MEDS: APIXABAN 5 MG TABLET PO SCH (09:42)
[2022-04-12] MEDS: CYANOCOBALAMIN (B-12) 100 MCG TABLET PO SCH (09:43)
--- NOTE | 2022-04-12 09:50 | Cardioversion ---
Date of Service April 12, 2022 Electrical Cardioversion Rpt Electrical Cardioversion Report After informed consent was obtained, sedation was given by anesthesia. The patient received 300 J synchronized energy converting him to normal sinus rhythm. Patient was recovered and returned to his room in stable condition.
--- NOTE | 2022-04-12 09:55 | Cardiology Progress Note ---
Date of Service April 12, 2022 Assessment & Plan (1) PAF (paroxysmal atrial fibrillation): Plan: Successful cardioversion this morning to sinus bradycardia. I have discontinued his metoprolol due to bradycardia. He will go home on a reduced dose of amiodarone 200 mg twice daily for 3 days and then 200 mg daily. I will arrange follow-up with our practice. Admission and Anticipated Discharge Date Admission Date: April 09, 2022 Subjective The patient had a successful cardioversion today. No ongoing complaints afterwards. Review of Systems Review of Systems: Review of Systems: See HPI for pertinent positives. All other 10 point review of systems are negative. Physical Exam Physical Exam: General: no acute distress and stated age Head: normocephalic, no masses, lesions, tenderness or abnormalities Eyes: conjunctiva are pink and non-injected, sclera clear Neck: supple, no adenopathy, no bruits, normal jugular venous pulse, no hepatojugular reflux Chest: normal shape and normal respiratory effort Lungs: clear to auscultation and percussion Cardiac Exam: - regular rate & rhythm, no murmurs gallops or rubs - normal S1, normal S2 Pulses: 2(+) throughout Abdomen: abdomen soft, non-tender, no abnormal masses and no hepatosplenomegaly Musculoskeletal: no gait disturbance, no joint inflammation, no deforming arthritis Extremities: no edema and no cyanosis Neuro: grossly normal exam Results & Data ([facility]) Vital Signs (Past 12 Hours) Vital Signs Temp Pulse Pulse Pulse Resp BP BP 04/12/22 09:31 48 L 16 111/74 04/12/22 08:03 36.6 C 49 L 18 115/65 04/12/22 07:40 50 L 15 116/76 04/12/22 07:30 50 L 15 104/71 04/12/22 07:22 50 L 15 110/74 04/12/22 07:08 63 16 142/85 H 04/12/22 03:23 36.5 C 73 16 124/71 04/11/22 22:52 59 L 04/11/22 22:50 36.6 C 75 18 126/74 Pulse Ox 04/12/22 09:31 04/12/22 08:03 98 04/12/22 07:40 94 04/12/22 07:30 97 04/12/22 07:22 97 04/12/22 07:08 97 04/12/22 03:23 98 04/11/22 22:52 04/11/22 22:50 97 Laboratory Results Laboratory Results - last 24 hr 04/11/22 04/12/22 08:57 06:40 Sodium 138 137 Potassium 4.1 3.9 Chloride 105 106 Carbon Dioxide 27 25 Anion Gap 6 6 BUN 18 18 Creatinine 1.02 1.03 Est Cr Clr Drug Dosing 80.1 79.3 Est GFR ( Amer) 82.4 81.4 Est GFR (Non-Af Amer) 71.1 70.2 BUN/Creatinine Ratio 17.6 17.5 Glucose 144 H 108 H Calcium 8.9 9.1 Magnesium 2.0 2.0 Medications Administered Current Inpatient Medications Acetaminophen (Acetaminophen 325 Mg Tab) 650 mg PO Q4H PRN PRN Reason: Pain or Fever Stop: 05/09/22 08:21 Al Hydrox/Mg Hydrox/Simethicone (Aluminum/Magnesium Susp 30 Ml Udc) 15 ml PO Q4H PRN PRN Reason: Dyspepsia Stop: 05/09/22 08:21 Amiodarone HCl (Amiodarone 200 Mg Tab) 200 mg PO BID [facility] Stop: 05/12/22 08:59 Last Admin: 04/12/22 09:42 Dose: 200 mg Documented by: Apixaban (Apixaban 5 Mg Tablet) 5 mg PO BID FADY Stop: 05/09/22 20:59 Last Admin: 04/12/22 09:42 Dose: 5 mg Documented by: Atorvastatin Calcium (Atorvastatin 20 Mg Tab) 20 mg PO DAILY FADY Stop: 05/10/22 08:59 Last Admin: 04/12/22 09:42 Dose: 20 mg Documented by: Cyanocobalamin (Cyanocobalamin (B-12) 100 Mcg Tablet) 100 mcg PO DAILY FADY Stop: 05/10/22 08:59 Last Admin: 04/12/22 09:43 Dose: 100 mcg Documented by: Magnesium Hydroxide (Magnesium Hydroxide Susp 30 Ml Udc) 30 ml PO Q12H PRN PRN Reason: Constipation Stop: 05/09/22 08:21 Metoprolol Succinate (Metoprolol Succ 25mg Ext Rel Tab) 12.5 mg PO DAILY FADY Stop: 05/12/22 08:59 Last Admin: 04/12/22 09:43 Dose: Not Given Documented by: Ondansetron HCl (Ondansetron Inj 2 Mg/Ml 2 Ml Vial) 4 mg IV Q6H PRN PRN Reason: Nausea Stop: 05/09/22 08:21 Polyethylene Glycol (Polyethylene (Miralax) 17 Gm Pack) 17 gm PO DAILY PRN PRN Reason: Constipation Stop: 05/09/22 08:21 Thiamine HCl (Thiamine Hcl 100 Mg Tab) 100 mg PO DAILY FADY Stop: 05/10/22 08:59 Last Admin: 04/12/22 09:42 Dose: 100 mg Documented by:
[2022-04-12 11:47] VITALS: PULSE 59
[2022-04-12 12:05] VITALS: BP 112/70; TEMP 98.6; O2SAT 96
--- NOTE | 2022-04-12 13:33 | Anesthesiology Progress Note ---
Date of Service April 12, 2022 Anesthesia Post Procedure Vital Signs Vital Signs: Temp Pulse Pulse Pulse Resp BP BP 04/12/22 12:01 37.0 C 59 L 18 112/70 04/12/22 11:44 36.6 C 59 L 16 111/74 04/12/22 09:31 48 L 16 111/74 04/12/22 08:03 36.6 C 49 L 18 115/65 04/12/22 07:40 50 L 15 116/76 04/12/22 07:30 50 L 15 104/71 04/12/22 07:22 50 L 15 110/74 04/12/22 07:08 63 16 142/85 H 04/12/22 03:23 36.5 C 73 16 124/71 04/11/22 22:52 59 L 04/11/22 22:50 36.6 C 75 18 126/74 04/11/22 20:06 36.5 C 58 L 20 143/93 H 04/11/22 15:16 36.7 C 68 19 143/94 H 04/11/22 14:19 61 Pulse Ox 04/12/22 12:01 96 04/12/22 11:44 98 04/12/22 09:31 04/12/22 08:03 98 04/12/22 07:40 94 04/12/22 07:30 97 04/12/22 07:22 97 04/12/22 07:08 97 04/12/22 03:23 98 04/11/22 22:52 04/11/22 22:50 97 04/11/22 20:06 97 04/11/22 15:16 98 04/11/22 14:19 Transfer of Care Handoff Completed per policy Notes Mental Status: alert / awake / arousable and participated in evaluation Patient Amnestic to Procedure: Yes Nausea / Vomiting: adequately controlled Pain: adequately controlled Airway Patency, RR, SpO2: stable & adequate BP & HR: stable & adequate Hydration State: stable & adequate Anesthetic Complications: no major complications apparent and Pt Satisfied with anesthetic care
--- NOTE | 2022-04-12 15:09 | Discharge Summary ---
Date of Service April 12, 2022 Admission HPI Per Admitting Provider This is a 76-year-old male who has a significant past medical history of paroxysmal atrial fibrillation anticoagulated on Eliquis with history of cardioversion in past, HTN, HLD, prediabetes, alcohol dependence, history of prostate cancer, mitral valve regurg who presents as a direct admission at the referral of cardiology for initiation of amiodarone load and possible cardioversion. Currently he feels well. He does not feel any palpitations while in atrial fibrillation. He does get dyspnea on exertion. He denies any recent illness, fever, chills, sweats, lightheadedness, dizziness, syncope, chest pain, shortness of breath at rest, cough, hemoptysis, URI symptoms, nausea, vomiting, abdominal pain, change in bowel or urinary habits. He took all his morning medications including Eliquis and metoprolol. Patient's most recent echocardiogram done as outpatient revealed preserved EF at 56%, moderate concentric LVH which was unchanged from 2016. He does have severe left atrium enlargement which previously was moderate in 2016, mild MR and TR stable. Recently he had increased his metoprolol succinate to 50 mg twice daily; however, symptoms remain the same. He has not missed any doses of his Eliquis. He states approximately a month and a half ago he was off of it for 3 days for a colonoscopy. He is a very active individual and goes to the gym frequently throughout the week. He also enjoys hiking. He is an occasional cigar smoker. He does drink alcohol daily. He has a daily happy hour from 3 PM to 5 PM. He states he drinks 1 drink a day. Admission Exam Per Admitting Provider Constitutional: WD/WN, NAD, sitting up in bedside chair, pleasant, conversing easily Head: Normocephalic, Atraumatic Eyes: ,pupils equal, conjunctivae normal, anicteric sclerae ENMT: external ear and nose normal, oropharynx normal Neck: trachea midline, no thyromegaly normal visual inspection Respiratory: normal respiratory effort, lungs clear to auscultation, no wheeze, rales, rhonchi. Normal insp/exp effort, no accessory muscle use Cardiovascular: IRR/IRR, no murmur, no edema Vessels: no JVD or carotid bruit Chest: normal inspection of chest Abdomen: soft,NT, BS, Musculoskeletal: no cyanosis or clubbing, AROM x 4 Skin: no rashes, warm and dry normal turgor Neurologic: no face palsy, no dysarthria CN's II-XI intact bilaterally and moves all extremities Psychiatric: A+Ox3, euthymic affect : deferred Principal Diagnosis Paroxysmal Atrial fibrillation Discharge Exam General: Sitting comfortably in bed, not in distress, on room air HEENT: EOMI, THAIS, MMM Chest: Clear breath sounds bilaterally, no wheezes or crackles CVS: Regular, normal heart sounds, no murmur Abdomen: Soft, non tender, not distended, normal bowel sounds Neuro: Awake, alert, oriented, conversing well, non focal Extremities: No cyanosis, clubbing or edema Discharge Data Allergies Allergy/AdvReac Type Severity Reaction Status Date / Time No Known Allergies Allergy Verified 04/09/22 08:35 Consultations 04/09/22 08:27 Consult Cardiology Routine 04/12/22 07:00 Consult Anesthesiology Routine Procedures Performed Operation Date: 04/12/22 07:15 Actual Procedures p Cardioversion Behavioral Technician w/Anesthesia - Fausto Mcqueen DO Ordered Studies Laboratory Results WBC 4.66 K/uL (4.8-10.8) L 04/10/22 07:27 RBC 4.36 M/uL (4.7-6.1) L 04/10/22 07:27 Hgb 14.3 g/dL (14.0-18.0) 04/10/22 07:27 Hct 42.4 % (42-52) 04/10/22 07:27 MCV 97.2 fL (80-100) 04/10/22 07:27 MCH 32.8 pg (25-34) 04/10/22 07:27 MCHC 33.7 g/dL (32-36) 04/10/22 07:27 RDW Std Deviation 50.9 fL (36.4-46.3) H 04/10/22 07:27 RDW Coeff of Jt 14.1 % (11.5-14.5) 04/10/22 07:27 Plt Count 145 K/uL (130-400) 04/10/22 07:27 MPV 11.3 fL (7.4-10.4) H 04/10/22 07:27 Immature Gran % (Auto) 0.4 % 04/10/22 07:27 Neut % (Auto) 54.6 % 04/10/22 07:27 Lymph % (Auto) 28.5 % 04/10/22 07:27 [place] % (Auto) 11.4 % 04/10/22 07:27 Eos % (Auto) 4.7 % 04/10/22 07:27 Baso % (Auto) 0.4 % 04/10/22 07:27 Neut # (Auto) 2.54 K/uL (1.4-6.5) 04/10/22 07:27 Lymph # (Auto) 1.33 K/uL (1.2-3.4) 04/10/22 07:27 [place] # (Auto) 0.53 K/uL (0.11-0.59) 04/10/22 07:27 Eos # (Auto) 0.22 K/uL (0-0.5) 04/10/22 07:27 Baso # (Auto) 0.02 K/uL (0-0.2) 04/10/22 07:27 Immature Gran # (Auto) 0.02 K/uL (0.00-0.02) 04/10/22 07:27 Sodium 137 mmol/L (136-145) 04/12/22 06:40 Potassium 3.9 mmol/L (3.5-5.1) 04/12/22 06:40 Chloride 106 mmol/L (98-107) 04/12/22 06:40 Carbon Dioxide 25 mmol/L (21-32) 04/12/22 06:40 Anion Gap 6 (3-11) 04/12/22 06:40 BUN 18 mg/dl (6-23) 04/12/22 06:40 Creatinine 1.03 mg/dl (0.6-1.4) 04/12/22 06:40 Est Cr Clr Drug Dosing 79.3 ml/min 04/12/22 06:40 Est GFR ( Amer) 81.4 ml/min 04/12/22 06:40 Est GFR (Non-Af Amer) 70.2 ml/min 04/12/22 06:40 BUN/Creatinine Ratio 17.5 (10-20) 04/12/22 06:40 Glucose 108 mg/dl (70-99(Fasting)) H 04/12/22 06:40 Estimat Average Glucose 114 mg/dl 04/10/22 07:27 Hemoglobin A1c 5.6 % (4.5-5.6) 04/10/22 07:27 Calcium 9.1 mg/dl (8.5-10.1) 04/12/22 06:40 Magnesium 2.0 mg/dl (1.7-2.4) 04/12/22 06:40 Total Bilirubin 1.8 mg/dl (0.2-1.0) H 04/10/22 07:27 Direct Bilirubin 0.3 mg/dl (0-0.2) H 04/10/22 07:27 AST 24 U/L (13-39) 04/10/22 07:27 ALT 42 U/L (7-52) 04/10/22 07:27 Alkaline Phosphatase 50 U/L (34-104) 04/10/22 07:27 Troponin I High Sens 8.0 pg/ml (0-20) 04/09/22 10:17 Total Protein 6.8 gm/dl (6.0-8.3) 04/10/22 07:27 Albumin 4.3 gm/dl (3.4-5.0) 04/10/22 07:27 Globulin 2.5 gm/dl (2.5-4.0) 04/10/22 07:27 Albumin/Globulin Ratio 1.7 (0.9-2) 04/10/22 07:27 TSH 2.032 uIu/ml (0.300-4.500) 04/09/22 10:17 SARS-CoV-2, RNA, NAAT NEGATIVE (NEGATIVE) 04/09/22 11:30 Hospital Course (1) PAF (paroxysmal atrial fibrillation): (2) HTN (hypertension): (3) HLD (hyperlipidemia): (4) Mitral valve regurgitation: (5) Pre-diabetes: This is a 76-year-old male who has a significant past medical history of paroxysmal atrial fibrillation anticoagulated on Eliquis with history of cardioversion in past, HTN, HLD, prediabetes, alcohol dependence, history of prostate cancer, mitral valve regurg who presents as a direct admission at the referral of cardiology for initiation of amiodarone load and possible cardioversion. Failed to convert with amiodarone load and underwent successful cardioversion today. Seen by cardio and cleared for discharge. Medication changes made per cardio and discussed with patient. PAF- failed to convert despite amiodarone loading and hence underwent successful cardioversion (1st CV) today - Cleared by cardio for discharge- toprol stopped given low HR; amiodarone 200 bid x3 days then daily per cardio - Echo 02/2022 per epic: LVEF preserved at 56% and moderate concentric LVH- unchanged from 2016, severe left atrium enlargement, previously was moderate in 2016, Mild MR and TR, stable - Continue eliquis HTN- stable, toprol discontinued per cardio due to bradycardia HLD- Continue statin Alcohol dependence- Drinks daily for happy hour from 3 to 5 PM; No signs of withdrawal; Recommend cessation Pre Diabetes- continue metformin, A1c 5.6. History of prostate cancer Dispo: Anxious to get discharged. Stable and comfortable for discharge home. Denies any needs. Cardio will arrange OP follow up Total Time Total Time Spent Total Time Spent (In Minutes): 35 Discharge Plan Discharge Items Patient Disposition: Home - Self-Care Reason For Visit: A FIB-NEEDS AMIODARONE INFUSION Discharge Diagnosis: Paroxysmal A fib Activity: Resume your previous activity Non-emergency contact: Primary Care Provider Call non-emergency contact if: you have any medication questions and your symptoms worsen Follow-up/Referrals: Antonio Milan MD [Primary Care Provider] - Diet: Heart Healthy Addtl Attending Provider Instructions: Amiodarone 1 tablet twice daily for 3 days and then amiodarone 1 tablet daily. Stop your metoprolol Monitor your heart rate and follow up with cardiology Pending Studies at Discharge: No Stand-Alone Forms: My [employer], Smoking Cessation Medications and DC Order Prescriptions: New amiodarone 200 mg Tablet 200 mg PO UD Qty: 30 RF: 0 Continued amoxicillin 500 mg Capsule 2,000 mg PO UD RF: 0 atorvastatin 20 mg Tablet 20 mg PO DAILY RF: 0 cyanocobalamin (vitamin B-12) [Vitamin B-12] 100 mcg Tablet 100 mcg PO DAILY RF: 0 thiamine HCl (vitamin B1) 100 mg Tablet 100 mg PO DAILY RF: 0 metformin 500 mg Tablet Extended Release 24 Hr 500 mg PO BIDM RF: 0 Eliquis 5 mg Tablet 5 mg PO BID RF: 0 Discontinued metoprolol succinate 25 mg Tablet Extended Release 24 Hr 50 mg PO BID RF: 0 Discharge Orders: Discharge Order (Routine); Ordered 04/12/22 Ordered By: Geraldo Hancock Admission Data Admit Date/Time: 04/09/22 09:30 Attending Provider: Geraldo Hancock Admit Provider: Demetrius Caceres Primary Care Provider: Antonio Milan Other Providers: Kelvin Palomo Andrew T Other Interventions: Discharge Summary Assessment (RN) Last Done: 04/12/22 11:44
--- NOTE | 2022-04-13 06:14 | Electrocardiogram Report ---
Test Reason : Blood Pressure : / mmHG Vent. Rate : 049 BPM Atrial Rate : 049 BPM P-R Int : 224 ms QRS Dur : 088 ms QT Int : 482 ms P-R-T Axes : 049 009 -06 degrees QTc Int : 435 ms Sinus bradycardia with 1st degree A-V block Otherwise normal ECG When compared with ECG of 11-APR-2022 05:02, Sinus rhythm has replaced Atrial fibrillation Confirmed by Cj Montoya ([id number]) on 04/13/2022 6:13:53 AM Referred By: Demetrius Caceres Confirmed By:Cj Montoya
== END 2022-04-12 12:44 | disposition home or self-care (01) | DRG 310 ==
LOC: SUATTDRO 09:30 → 2S 09:30